=== PATIENT | male | born 1980 | race Two or more races ===

== ENCOUNTER → 2018-10-11 | Outpatient (CLI) | payer OTHER ==
--- NOTE | 2018-10-11 12:55 | RAD ---
EXAM: CT Chest with IV contrast CLINICAL HISTORY: PULMONARY NODULE follow-up COMPARISON: No prior imaging is available for comparison. TECHNIQUE: CT of the chest following the administration of intravenous contrast. Axial, coronal and sagittal reformatted images were generated. ---PQRS compliance statement - One or more of the following individualized dose reduction techniques were utilized for this study: 1. Automated exposure control 2. Adjustment of the mA and/or kV according to patient size 3. Use of iterative reconstruction technique--- FINDINGS: CHEST: The heart is mildly enlarged. No pericardial effusion. No mediastinal or hilar lymphadenopathy within the constraints of this noncontrast exam. No axillary lymphadenopathy. No pleural effusion or pneumothorax. Bilateral emphysematous changes are seen. Linear opacities in the lower lobes likely scarring/atelectasis. A 6 mm middle lobe lung nodule is seen (series 3 image 91). A 4 mm right lower lobe lung nodule (series 3 image 108) is seen. Visualized Upper abdomen: Relative hepatic hypoattenuation likely hepatic steatosis with focal fatty sparing at the gallbladder fossa. Calcified gallstones are seen. Small splenule is noted. Upper abdomen is otherwise unremarkable. Bones: Osseous structures are grossly unremarkable. IMPRESSION: 1. Right-sided lung nodules are seen including a 6 mm minimal lobe lung nodule and 4 mm lower lobe lung nodule. As no prior imaging is available for comparison, stability cannot be determined. Recommend comparison to priors to establish ability. 2. Hepatic steatosis 3. Cholelithiasis Electronically signed by: Armand Mayen MD (10/11/2018 12:52 PM) [id number]
== END | disposition home or self-care (01) ==
LOC: CT 10:24
PROVIDERS: ATTEND Physician Assistant
DX: R91.8 Other nonspecific abnormal finding of lung field (principal); J43.9 Emphysema, unspecified; K76.0 Fatty (change of) liver, not elsewhere classified; K80.20 Calculus of gallbladder without cholecystitis without obstruction
CPT/HCPCS: 71250